=== PATIENT | male | born 1960 | race Caucasian/White ===

== ENCOUNTER 2018-05-13 08:40 | Day surgery (SDC) | END 2018-05-13 15:00 | disposition home or self-care (01) ==

== ENCOUNTER 2019-02-26 11:38 | Day surgery (SDC) | payer OTHER ==
[~2019-02-26] VITALS: Ht 172.7 cm; Wt 78.2 kg
[~2019-02-26 11:38] MED LIST: ASPI-817 PO; ERGO500013 PO; SIMV20TA PO
[2019-02-26 12:31] VITALS: Ht 172.7 cm; Wt 78.2 kg
[2019-02-26 13:23] VITALS: BP 95/59; PULSE 90; RESP 18
--- NOTE | 2019-02-26 13:51 | PREAC ---
Date/Time of Note Date/Time of Note DATE: 02/26/19 TIME: 13:49 Anesthesia Eval and Record Evaluation Time Pre-Procedure Interview DATE: 02/26/19 TIME: 13:49 Age 58 Sex male NPO: 8 hrs Preoperative diagnosis GERD/ SCREENING Planned procedure EGD AND COLON Past Medical History Past Medical History: Includes Cardio: Dyslipidemia Pulm: Smoking Hx Surgery & Anesthesia Issues No known issue Meds Anticoagulation: No Beta Xenia within 24 hr: No Reason Beta Xenia not given: Pt. not on B-Xenia Reported Medications Simvastatin* (Zocor*) 20 Mg Tablet, 20 MG PO QHS, #30 TAB 05/13/18 Discontinued Reported Medications Ergocalciferol (Vitamin D2) (VITAMIN D2) 50,000 Unit Capsule, [address]14 UNIT PO Q7D, CAP 05/13/18 Aspirin* (Aspirin* EC) 81 Mg Tablet.dr, 81 MG PO DAILY, TAB 05/13/18 Meds reviewed: Yes Allergies Coded Allergies: No Known Allergy (Unverified , 05/13/18) Allergies Reviewed: Yes Labs/Studies Labs Reviewed: Reviewed by anesthesiologist test: N/A Pre-procedure Exam Last vitals Vital Signs Date Temp Pulse Resp B/P (MAP) Pulse Ox O2 O2 Flow FiO2 Time Delivery Rate 02/26/19 98.5 90 18 95/59 (71) 90 Room Air 13:23 Airway: Adequate mouth opening, Adequate thyromental dist Mallampati: Mallampati II Teeth: Normal Lung: Normal Heart: Normal ASA Physical Status ASA physical status: 2 Emergency: None Planned Anesthetic General/MAC: MAC Planned Pain Management Parenteral pain med Pre-operative Attestations Prior to commencing anesthesia and surgery, the patient was re-evaluated, there was verification of: *The patient's identity *The results of appropriate recent lab work and preoperative vital signs *The above evaluation not changing prior to induction *Anesthetic plan, risk benefits, alternative and complications discussed with patient/family; questions answered; patient/family understands, accepts and wishes to proceed. CAESAR SAUCEDO February 26, 2019 13:51
[2019-02-26] MEDS ORDERED: PROPOFOL 60 ML ONE (13:52)
[2019-02-26] MEDS ORDERED: LIDOCAINE 2% (SDV) 5 ML INJ ONE (13:52)
[2019-02-26] MEDS ORDERED: hydrALAzine 20 MG INJ IV PRN (14:00)
[2019-02-26] MEDS ORDERED: EPHEDrine 25 MG/5 ML SYG IV PRN (14:00)
[2019-02-26] MEDS ORDERED: ONDANSETRON 4 MG INJ IV PRN (14:00)
[2019-02-26] MEDS ORDERED: LABETALOL HCL 20MG INJ IV PRN (14:00)
[2019-02-26] MEDS ORDERED: FENTAnyl 50 MCG/ML VIAL IV PRN (14:00)
[2019-02-26 14:42] VITALS: BP 111/69; PULSE 72; RESP 19
--- NOTE | 2019-02-26 17:04 | PAC ---
Date/Time of Note Date/Time of Note DATE: 02/26/19 TIME: 17:04 Post-Anesthesia Notes Post-Anesthesia Note Last documented vital signs Vital Signs Date Temp Pulse Resp B/P (MAP) Pulse Ox O2 O2 Flow FiO2 Time Delivery Rate 02/26/19 98.5 72 19 111/69 96 Room Air 14:42 (83) 02/26/19 98.5 13:23 Activity: WNL Respiratory function: WNL Cardiovascular function: WNL Mental status: Baseline Pain reasonably controlled: Yes Hydration appropriate: Yes Nausea/Vomiting absent: Yes CAESAR SAUCEDO February 26, 2019 17:04
== END 2019-02-26 16:00 | disposition home or self-care (01) ==
LOC: GIL 11:38
PROVIDERS: ATTEND Internal Medicine Gastroenterology
DX: Z12.11 Encounter for screening for malignant neoplasm of colon (principal); D12.5 Benign neoplasm of sigmoid colon; K64.8 Other hemorrhoids; K44.9 Diaphragmatic hernia without obstruction or gangrene; K20.9 Esophagitis, unspecified; K31.9 Disease of stomach and duodenum, unspecified
CPT/HCPCS: 43239; 45380; 88305; 88312; 88313; Z7610